=== PATIENT | female | born 1950 | race Caucasian/White ===

== ENCOUNTER 2019-05-15 16:18 | Emergency (ER) | payer MEDICARE ==
--- NOTE | 2019-05-15 16:48 | ED Physician Documentation ---
PD HPI CHEST PAIN - Stated complaint Stated Complaint: CP - Chief complaint Chief Complaint: Cardiac - History obtained from History obtained from: Patient, Family - History of Present Illness Timing - onset: How many minutes ago (10-15) Timing - onset during: Rest Timing - duration: Minutes (10-15) Timing - details: Abrupt onset Pain level max: 6 Pain level now: 0 Quality: Pressure, Tightness Location: Substernal Radiation: Neck Improved by: Nothing Worsened by: No: Exertion, Inspiration, Eating, Movement, Palpation, Position Associated symptoms: Shortness of air, Nausea, Feeling faint / dizzy. No: Diaphoresis, Vomiting, General Weakness, Palpitations, Cough Similar symptoms before: Has not had sx before Recently seen: Not recently seen - Additional information Additional information: 69-year-old female presents to the emergency department stating that she had chest pain x2 today. The first was approximately 4 hours ago, sitting at a service when she felt pressure and tightness across her anterior chest that radiated up to her neck. Lasted approximately 10 to 15 minutes and then resolved. A second episode that occurred approximately half an hour prior to arrival. This was similar to the first, tightness in the anterior chest followed by radiation to the bilateral neck. Has never had similar symptoms previously. No history of cardiac disease. States that she does have high cholesterol. She states her blood pressure is occasionally high but is not on medication. She does not smoke. She does have a family history of heart disease. Took ASA this am Review of Systems Ten Systems: 10 systems reviewed and negative Constitutional: denies: Fever, Chills Nose: denies: Rhinorrhea / runny nose, Congestion Respiratory: denies: Dyspnea, Cough GI: denies: Nausea, Vomiting, Diarrhea Skin: denies: Rash Musculoskeletal: denies: Neck pain, Back pain Neurologic: denies: Focal weakness, Numbness, Headache PD PAST MEDICAL HISTORY - Past Medical History Past Medical History: Yes Cardiovascular: Hypertension - Allergies Allergies/Adverse Reactions: Allergies Allergy/AdvReac Type Severity Reaction Status Date / Time morphine AdvReac Nausea Verified 05/15/19 16:28 - Living Situation Living Situation: reports: With family Living Arrangement: reports: At home - Social History Does the pt smoke?: No Does the pt drink ETOH?: Yes Does the pt have substance abuse?: No - Family History Family history: reports: CAD - Immunizations Immunizations are current?: Yes PD ED PE NORMAL - Vitals Vital signs reviewed: Yes - General General: Alert and oriented X 3, No acute distress, Well developed/nourished - HEENT HEENT: PERRL, Moist mucous membranes - Neck Neck: Supple, no meningeal sign - Cardiac Cardiac: RRR, No murmur, Strong equal pulses - Respiratory Respiratory: No respiratory distress, Clear bilaterally - Abdomen Abdomen: Soft, Non tender, Non distended - Derm Derm: Warm and dry - Extremities Extremities: No edema, No calf tenderness / cord - Neuro Neuro: Alert and oriented X 3 - Psych Psych: Normal mood, Normal affect Results - Vitals Vitals: Vital Signs - 24 hr 05/15/19 05/15/19 05/15/19 16:24 17:29 17:55 Temperature 36.2 C L Heart Rate 67 60 64 Respiratory 16 14 13 Rate Blood Pressure 153/78 H 142/81 H 132/82 H O2 Saturation 97 60 L 100 05/15/19 05/15/19 18:15 19:20 Temperature 36.9 C Heart Rate 66 60 Respiratory 16 13 Rate Blood Pressure 142/86 H 139/74 H O2 Saturation 98 100 Oxygen O2 Source Room air - EKG (time done) 1624 Rate: Rate (enter#) (71) Rhythm: NSR [place]: Normal Intervals: Normal AR QRS: Normal Ischemia: Normal ST segments, Other (late R wave transition) Compare to prior EKG: Old EKG unavailable - Labs Labs: Laboratory Tests 05/15/19 05/15/19 05/15/19 17:00 17:00 17:00 WBC 7.6 RBC 4.46 Hgb 13.3 Hct 39.8 MCV 89.3 MCH 29.8 MCHC 33.3 RDW 13.3 Plt Count 249 MPV 6.9 L Neut # (Auto) 5.1 Lymph # (Auto) 1.8 [place] # (Auto) 0.5 Eos # (Auto) 0.2 Baso # (Auto) 0.1 Absolute Nucleated RBC 0.01 Nucleated RBC % 0.1 Sodium 137 Potassium 3.8 Chloride 101 Carbon Dioxide 24 Anion Gap 12.0 BUN 19 Creatinine 0.6 Estimated GFR (MDRD) 99 Glucose 116 H Calcium 9.4 Total Bilirubin 0.6 AST 22 ALT 21 Alkaline Phosphatase 57 Troponin I < 0.04 Total Protein 7.0 Albumin 4.2 Globulin 2.8 Albumin/Globulin Ratio 1.5 Lipase 31 05/15/19 19:00 WBC RBC Hgb Hct MCV MCH MCHC RDW Plt Count MPV Neut # (Auto) Lymph # (Auto) [place] # (Auto) Eos # (Auto) Baso # (Auto) Absolute Nucleated RBC Nucleated RBC % Sodium Potassium Chloride Carbon Dioxide Anion Gap BUN Creatinine Estimated GFR (MDRD) Glucose Calcium Total Bilirubin AST ALT Alkaline Phosphatase Troponin I < 0.04 Total Protein Albumin Globulin Albumin/Globulin Ratio Lipase - Rads (name of study) cxr Radiology: Prelim report reviewed, EMP read contemporaneously, See rad report (no acute disease) PD MEDICAL DECISION MAKING - ED course Complexity details: reviewed results, re-evaluated patient, considered differential (No ST elevation WI, no aortic dissection, no PE, no tension pneumothorax, no aortic aneurysm), d/w patient, d/w family ED course: 69-year-old female presents to the emergency department with chest pain x2 today. No acute findings on EKG. Negative troponin x2. After the first troponin I recommended that she be placed into observation for serial troponins. Patient does not want to stay in the hospital. Therefore second troponin was drawn. She will return for any recurrence of symptoms. She will also start on aspirin daily. She will follow-up with her doctor on Friday to ensure a cardiac stress test early this week. Patient informed that she is welcome to return at any time. Patient counseled regarding signs and symptoms for which I believe and urgent re-evaluation would be necessary. Patient with good understanding of and agreement to plan and is comfortable going home at this time This document was made in part using voice recognition software. While efforts are made to proofread this document, sound alike and grammatical errors may occur. Departure - Departure Disposition: Home, Self Care Clinical Impression: Chest pain Qualifiers: Chest pain type: unspecified Qualified Code(s): R07.9 - Chest pain, unspecified Condition: Good Instructions: ED Chest Pain Atypical Unkn Cause Follow-Up: María Pyle ARNP [Primary Care Provider] - Within 3 Days Comments: Start on a baby aspirin daily. Return if you worsen. Follow-up with your doctor for further care. It is important that you have a cardiac stress test early next week. Return sooner for any worsening or recurrent symptoms. The cause of your pain is unclear today. Discharge Date/Time: 05/15/19 19:49
[2019-05-15 17:15] LABS: BASOPHILS # (AUTO) 0.1 10^3/uL (0.0-0.1); BASOPHILS % (AUTO) 0.7 %; EOSINOPHILS # (AUTO) 0.2 10^3/uL (0.0-0.7); EOSINOPHILS % (AUTO) 2.1 %; HGB - HEMOGLOBIN 13.3 g/dL (12.0-16.0); LYMPHOCYTES # (AUTO) 1.8 10^3/uL (1.5-3.5); LYMPHOCYTES % (AUTO) 23.7 %; MEAN CORPUSCULAR HEMOGLOBIN 29.8 pg (27.0-31.0); MEAN CORPUSCULAR HGB CONC 33.3 g/dL (32.0-36.0); MEAN CORPUSCULAR VOLUME 89.3 fL (81.0-99.0); MEAN PLATELET VOLUME 6.9 fL (7.9-10.8); MONOCYTES # (AUTO) 0.5 10^3/uL (0.0-1.0); MONOCYTES % (AUTO) 6.7 %; NEUTROPHILS # (AUTO) 5.1 10^3/uL (1.5-6.6); NEUTROPHILS % (AUTO) 66.8 %; PLT - PLATELET COUNT 249 10^3/uL (130-450); RED BLOOD COUNT 4.46 10^6/uL (4.20-5.40); RED CELL DISTRIBUTION WIDTH 13.3 % (12.0-15.0); WHITE BLOOD COUNT 7.6 x10^3/uL (4.8-10.8)
--- NOTE | 2019-05-15 17:23 | XRAY Report ---
Reason: chest pain Procedure Date: 05/15/2019 Accession Number: [id number] / [id number] Procedure: XR - Chest 1 View X-Ray CPT Code: 44047 FULL RESULT: EXAM: CHEST RADIOGRAPHY EXAM DATE: 05/15/2019 04:34 PM. CLINICAL HISTORY: Chest pain. COMPARISON: None available. TECHNIQUE: 1 view. FINDINGS: Lungs/Pleura: No focal opacities evident. No pleural effusion. No pneumothorax. Mediastinum: Within exam limitations, the cardiomediastinal contour is normal. There is atherosclerotic calcification in the aortic arch. Other: There is a mild convex left spine scoliosis. There are surgical clips in the right axilla. IMPRESSION: Grossly clear. RADIA
[2019-05-15 17:25] LABS: ALBUMIN 4.2 g/dL (3.2-5.5); ALBUMIN/GLOBULIN RATIO 1.5 (1.0-2.2); BILIRUBIN,TOTAL 0.6 mg/dL (0.2-1.0); CALCIUM 9.4 mg/dL (8.5-10.3); CREATININE 0.6 mg/dL (0.4-1.0)
[2019-05-15 19:22] VITALS: BP 139/74
== END 2019-05-15 19:49 | disposition home or self-care (01) ==
LOC: ED 16:18
DX: R07.89 Other chest pain (principal); I10 Essential (primary) hypertension; E78.00 Pure hypercholesterolemia, unspecified; Z82.49 Family history of ischemic heart disease and other diseases of the circulatory system
CPT/HCPCS: 36415; 71045; 80053; 83690; 84484; 85025; 93005; 99283